=== PATIENT | female | born 1965 | race Caucasian/White ===

== ENCOUNTER 2018-12-11 17:22 | Emergency (ER) | payer OTHER ==
[2018-12-11 18:30] VITALS: BP 115/48
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
--- NOTE | 2018-12-11 20:19 | Cat Scan Report ---
PROCEDURE: CT LUMBAR SPINE WO CON TECHNIQUE: Computerized axial tomography of the lumbar spine was performed from T12 to the sacrum wi thout contrast material. CT DOSE LENGTH PRODUCT: 406 mGycm HISTORY: back pain/injury COMPARISONS: None . FINDINGS: The alignment of the vertebral segments is normal. There is slight loss of disc space height at the L 5-S1 level. L1-2: No significant abnormality . L2-3: No significant abnormality . L3-4: No significant abnormality . L4-5: No significant abnormality . L5-S1: No significant abnormality . Other: The spinal canal is adequate at all levels. There is no evidence of an acute fracture or disl ocation of the lumbar spine. . IMPRESSION: Mild lumbar spondylosis with loss of disc space height at the L5-S1 level. No evidence o f an acute fracture or dislocation. . This document is electronically signed by Nichelle Whitney DO., December 11 2018 08:16:44 PM ET
[2018-12-11] MEDS ORDERED: TYLENOL PO ONE (20:41)
[2018-12-11] MEDS ORDERED: TYLENOL ONE (20:46)
--- NOTE | 2018-12-11 21:12 | XRay Report ---
PROCEDURE: BILATERAL RIBS TECHNIQUE: Bilateral rib radiographs, 3 views. HISTORY: rib pain COMPARISONS: None . FINDINGS: Lungs: Normal . Pleural space: Normal . Pneumothorax: None . Bony thorax/ribs: No significant abnormality . IMPRESSION: Normal examination of the bilateral ribs . This document is electronically signed by Nichelle Whitney DO., December 11 2018 09:10:40 PM ET
--- NOTE | 2018-12-11 21:21 | Cat Scan Report ---
PROCEDURE: CT CERVICAL SPINE WO CON TECHNIQUE: CT cervical spine without contrast HISTORY: pain COMPARISONS: FINDINGS: No acute fracture identified. Vertebral bodies are normal in height and alignment. Spinous and transv erse processes are intact. Disc spaces are within normal limits. C7 incompletely evaluated on the rec onstructed images. Facet joints demonstrate normal alignment. Note is made of fluid within the sphenoid sinus. IMPRESSION: No acute cervical abnormality identified Sphenoid sinusitis which is likely acute. This document is electronically signed by Bowen Rivera MD., December 11 2018 09:19:50 PM ET
[2018-12-11] MEDS ORDERED: TORADOL IM ONE (21:43)
[2018-12-11] MEDS ORDERED: BENADRYL PO ONE (21:44)
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
== END 2018-12-11 23:12 | disposition home or self-care (01) ==
LOC: ED 17:22
DX: S16.1XXA Strain of muscle, fascia and tendon at neck level, initial encounter (principal); R07.89 Other chest pain; J45.909 Unspecified asthma, uncomplicated; Z88.0 Allergy status to penicillin; Z88.8 Allergy status to other drugs, medicaments and biological substances; V49.49XA Driver injured in collision with other motor vehicles in traffic accident, initial encounter; Y93.89 Activity, other specified; Y92.89 Other specified places as the place of occurrence of the external cause; Y99.8 Other external cause status
CPT/HCPCS: 71111; 72125; 72131; 93005; 93010; 96372; 99284; J1885